=== PATIENT | male | born 1955 | race Caucasian/White ===

== ENCOUNTER 2021-08-13 10:16 | Outpatient (CLI) | payer MEDICARE, OTHER | END 2021-08-13 10:17 | disposition home or self-care (01) | LOC: CTENTCT 10:16 | PROVIDERS: ATTEND Specialist | DX: J34.2 Deviated nasal septum (principal) | CPT/HCPCS: 70486 ==

== ENCOUNTER 2022-06-15 07:50 | Observation (INO) | payer MEDICARE, OTHER ==
[2022-06-12 14:11] VITALS: BMI 28.5
[2022-06-15] MEDS ORDERED: Sodium Chloride 0.9% 100 ML ONE (11:18)
[2022-06-15] MEDS ORDERED: CEFAZOLIN 2 GM VIAL ONE (11:18)
[2022-06-15] MEDS ORDERED: fentaNYL PF 100 MCG/2 ML SYRINGE ONE (11:22)
[2022-06-15] MEDS ORDERED: Rocuronium Bromide 10 MG/ML (10ML VIAL) ONE (11:33)
[2022-06-15] MEDS ORDERED: Dexamethasone 20 MG/5 ML VIAL ONE (11:33)
[2022-06-15] MEDS ORDERED: Ketorolac Tromethamine 30 MG/ML VIAL ONE (11:33)
[2022-06-15] MEDS ORDERED: Labetalol HCl 100 MG/20 ML VIAL ONE (11:33)
[2022-06-15] MEDS ORDERED: PROPOFOL 200 MG/20 ML VIAL ONE (11:33)
[2022-06-15] MEDS ORDERED: NEOSTIGMINE 3 MG/3 ML SYR 3 MG/3 ML SYRINGE ONE (11:33)
[2022-06-15] MEDS ORDERED: Glycopyrrolate 0.2 MG/ML 5 ML SYRINGE ONE (11:33)
[2022-06-15] MEDS ORDERED: Ondansetron PF 4 MG/2 ML Vial ONE (11:33)
[2022-06-15] MEDS ORDERED: Promethazine HCl 25 MG/ML VIAL IVPB PRN (12:19)
[2022-06-15] MEDS ORDERED: HYDROmorphone 2 MG/ML VIAL SLOW IVP PRN (12:19)
[2022-06-15] MEDS ORDERED: Meperidine HCl/PF 25 MG/ML VIAL SLOW IVP PRN (12:19)
[2022-06-15] MEDS ORDERED: Mag-Al 1200 mg/1200 mg/30 ML UDCUP PO PRN (12:59)
[2022-06-15] MEDS ORDERED: Ondansetron PF 4 MG/2 ML Vial IVP PRN (12:59)
[2022-06-15] MEDS ORDERED: Promethazine 25 MG TAB PO PRN (12:59)
[2022-06-15] MEDS ORDERED: Milk Of Magnesia 30 ML UDCUP PO PRN (12:59)
[2022-06-15] MEDS ORDERED: diphenhydrAMINE 25 MG CAP PO PRN (12:59)
[2022-06-15] MEDS ORDERED: Acetaminophen/Codeine 30-300mg Tablet PO PRN (12:59)
[2022-06-15] MEDS ORDERED: traMADol HCl 50 MG TAB PO PRN (12:59)
[2022-06-15] MEDS ORDERED: Morphine 4 MG/ML VIAL SLOW IVP PRN (13:08)
[2022-06-15] MEDS ORDERED: FENTANYL 50 MCG/ML 1 ML VIAL ONE ×2 (13:14→13:46)
[2022-06-15] MEDS ORDERED: Meperidine HCl/PF 25 MG/ML VIAL ONE (13:27)
[2022-06-15] MEDS: Sodium Chloride 0.9% 1,000 ML IV SCH (13:58)
[2022-06-15] MEDS: Acetaminophen/Codeine 30-300mg Tablet PO PRN (18:06)
[2022-06-15] MEDS: Gabapentin 300 MG CAP PO SCH (20:19)
[2022-06-15] MEDS: CEFAZOLIN 2 GM in Sodium Chloride 0.9% 100 ML IVPB SCH (20:19)
[2022-06-15] MEDS: Cyclobenzaprine 10 MG TAB PO PRN (20:21)
[2022-06-16] MEDS: Sodium Chloride 0.9% 1,000 ML IV SCH (03:38)
[2022-06-16] MEDS: CEFAZOLIN 2 GM in Sodium Chloride 0.9% 100 ML IVPB SCH ×2 (04:13→13:45)
[2022-06-16] MEDS ORDERED: Tamsulosin HCl 0.4 MG CAP PO SCH (06:00)
[2022-06-16] MEDS: Acetaminophen/Codeine 30-300mg Tablet PO PRN ×2 (06:22→12:15)
[2022-06-16] MEDS ORDERED: Lisinopril 20 MG TAB PO SCH (09:00)
[2022-06-16] MEDS: Gabapentin 300 MG CAP PO SCH (09:30)
[2022-06-16] MEDS: Cyclobenzaprine 10 MG TAB PO PRN (09:30)
[2022-06-16 12:27] VITALS: BP 123/77; TEMP 98.2
== END 2022-06-16 14:48 | disposition home or self-care (01) ==
LOC: SDC 07:50 → SURG B 15:02
PROVIDERS: ADMIT Neurological Surgery; ATTEND Neurological Surgery
PROC: 0SG1071 Fusion of 2 or more Lumbar Vertebral Joints with Autologous Tissue Substitute, Posterior Approach, Posterior Column, Open Approach (ICD-10-PCS; principal; 2022-06-15)
DX: M48.062 Spinal stenosis, lumbar region with neurogenic claudication (principal); M71.38 Other bursal cyst, other site; Z79.899 Other long term (current) drug therapy
CPT/HCPCS: 20930; 20936; 22612; 22614; 22842; 97116; C1713 ×3; C1768; C1776; J3010; J1100; J1885; J2175; J2405; J2704; J3490

== ENCOUNTER 2022-06-30 12:32 | Outpatient (CLI) | payer MEDICARE, OTHER | END 2022-06-30 12:33 | disposition home or self-care (01) | LOC: TBSIIMAG 12:32 | PROVIDERS: ATTEND Neurological Surgery | DX: M48.062 Spinal stenosis, lumbar region with neurogenic claudication (principal); M47.816 Spondylosis without myelopathy or radiculopathy, lumbar region; Z98.1 Arthrodesis status | CPT/HCPCS: 72100 ==